=== PATIENT | male | born 1965 | race African-American/Black ===

== ENCOUNTER 2018-10-01 15:51 | Inpatient (IN) | payer OTHER ==
[~2018-10-01] VITALS: Ht 180.3 cm; Wt 131.5 kg
[2018-10-01] MEDS ORDERED: FURO-152 PO (16:00)
[2018-10-01] MEDS ORDERED: METHYLPREDNISOLONE SOD SUCC 125 MG/2 ML VIAL IV STA (16:07)
[2018-10-01] MEDS ORDERED: IPRATROPIUM/ALBUTEROL 0.5-3(2.5)MG/3ML NEB ONE (16:11)
[2018-10-01] MEDS ORDERED: NITROGLYCERIN OINT 1GM/INCH UDPKT TD ONE (16:15)
[2018-10-01] MEDS ORDERED: MAGNESIUM 2 G PREMIX 50 ML IV ONE (16:15)
[2018-10-01] MEDS ORDERED: IPRATROPIUM/ALBUTEROL 0.5-3(2.5)MG/3ML NEB HHN ONE (16:15)
[2018-10-01] MEDS ORDERED: FUROSEMIDE 40MG/4ML VIAL IV ONE (16:15)
[2018-10-01 16:47] LABS: BG BASE EXCESS 1.3 mmol/L (-2.0-2.0); BG CARBOXYHEMOGLOBIN 0.8 % (0.5-1.5); BG DEOXYHEMOGLOBIN 0.5 % (0.0-5.0); BG FRACTION INSPIRED OXYGEN 60; BG HCO3 ACT 26.1 mmol/L (22.0-26.0); BG METHEMOGLOBIN 0.3 % (0.0-1.5); BG OXYGEN SATURATION 99.5 % (92.0-98.5); BG OXYHEMOGLOBIN 98.4 % (94.0-97.0); BG PCO2 41.9 mmHg (35.0-45.0); BG PH 7.412 (7.350-7.450); BG PO2 390.1 mmHg (75.0-100.0); BG PRESSURE SUPPORT 10; BG SAMPLE SITE RIGHT BRACHIAL; BG TOTAL HEMOGLOBIN 12.7 g/dL (12.0-18.0); BG VENT MODE MASK - BIPAP; BG VENT RATE 14 set
[2018-10-01 16:48] LABS: BG BILEVEL POS AIRWAY PRESSURE ST=15/5
[2018-10-01 17:34] LABS: BASOPHILS % 0.8 % (0.0-2.0); EOSINOPHILS % 3.9 % (0.0-5.0); HEMATOCRIT. 40.6 % (42.0-52.0); HEMOGLOBIN. 13.4 g/dL (14.0-18.0); MEAN CORPUSCULAR HEMOGLOBIN 27.9 pg (28.0-32.0); MEAN CORPUSCULAR VOLUME 84.9 fL (80.0-94.0); MEAN PLATELET VOLUME 9.7 fl (7.4-10.4); MONOCYTES % 10.5 % (2.0-8.0); NEUTROPHILS % 62.8 % (40.0-76.0); PLATELET 186 x1000/uL (130-400); RED BLOOD CELL COUNT 4.79 mill/uL (4.7-6.1); RED CELL DISTRIBUTION WIDTH 13.7 % (11.6-14.6)
[2018-10-01 17:39] LABS: CHLORIDE 103 mEq/L (98-107)
[2018-10-01 17:46] LABS: CLARITY URINE CLEAR (CLEAR); COLOR URINE YELLOW (YELLOW); KETONES URINE NEGATIVE (NEGATIVE); LEUKOCYTE ESTERASE URINE NEGATIVE (NEGATIVE); NITRITE URINE NEGATIVE (NEGATIVE); OCCULT BLOOD URINE NEGATIVE (NEGATIVE); PH URINE 6.5 (4.5-8.0); PROTEIN URINE NEGATIVE (NEGATIVE); UROBILINOGEN URINE 0.2 E.U./dL (0.2-1.0)
[2018-10-01 23:00] VITALS: BP 169/105
[2018-10-01 23:11] VITALS: BP 169/105
[2018-10-02] VITALS (13 sets, daily range): BP systolic 108–172; BP diastolic 55–109
[2018-10-02] MEDS ORDERED: ACETAMINOPHEN 325MG TABLET PO PRN (01:00)
[2018-10-02] MEDS ORDERED: ONDANSETRON HCL 4MG/2ML INJ IV PRN (01:00)
[2018-10-02] MEDS: CLONIDINE 0.1MG TABLET PO PRN ×2 (02:59→13:08)
[2018-10-02] MEDS: METHYLPREDNISOLONE SOD SUCC 40 MG/ML VIAL IV SCH ×3 (03:00→18:00)
[2018-10-02] MEDS: ENOXAPARIN 30MG/0.3ML SYR SUBCUT SCH ×2 (03:01→21:34)
[2018-10-02] MEDS: IPRATROPIUM/ALBUTEROL 0.5-3(2.5)MG/3ML NEB HHN SCH ×5 (04:29→19:46)
[2018-10-02 05:42] LABS: HEMATOCRIT. 37.9 % (42.0-52.0); HEMOGLOBIN. 12.3 g/dL (14.0-18.0); MEAN CORPUSCULAR HEMOGLOBIN 27.9 pg (28.0-32.0); MEAN CORPUSCULAR VOLUME 86.1 fL (80.0-94.0); MEAN PLATELET VOLUME 10.5 fl (7.4-10.4); PLATELET 193 x1000/uL (130-400); RED CELL DISTRIBUTION WIDTH 14.5 % (11.6-14.6)
[2018-10-02 05:46] LABS: CHLORIDE 98 mEq/L (98-107)
[2018-10-02] MEDS ORDERED: FLUO40CA8 MT (05:47)
[2018-10-02] MEDS ORDERED: POTASSIUM PO (05:47)
[2018-10-02] MEDS ORDERED: VITAMIN K PO (05:47)
[2018-10-02] MEDS ORDERED: Lisinopril PO (05:47)
[2018-10-02] MEDS ORDERED: PROZAC PO (05:47)
[2018-10-02] MEDS ORDERED: FUROSEMIDE PO (05:47)
[2018-10-02] MEDS ORDERED: ATOR40TA70 MT (05:47)
[2018-10-02] MEDS ORDERED: HYDR-4135 MT (05:47)
[2018-10-02] MEDS ORDERED: Carvedilol PO (05:47)
[2018-10-02] MEDS ORDERED: ATROV INH (05:47)
[2018-10-02] MEDS ORDERED: ASPI-1159 MT (05:47)
[2018-10-02] MEDS: FUROSEMIDE 40MG/4ML VIAL IVP SCH ×2 (08:42→16:53)
[2018-10-02 08:44] LABS: BG BASE EXCESS -0.2 mmol/L (-2.0-2.0); BG BILEVEL POS AIRWAY PRESSURE ST=15/5; BG CARBOXYHEMOGLOBIN 0.5 % (0.5-1.5); BG DEOXYHEMOGLOBIN 4.4 % (0.0-5.0); BG FRACTION INSPIRED OXYGEN 50; BG HCO3 ACT 25.4 mmol/L (22.0-26.0); BG METHEMOGLOBIN 0.3 % (0.0-1.5); BG OXYGEN SATURATION 95.6 % (92.0-98.5); BG OXYHEMOGLOBIN 94.8 % (94.0-97.0); BG PH 7.369 (7.350-7.450); BG PO2 83.5 mmHg (75.0-100.0); BG PRESSURE SUPPORT 10; BG SAMPLE SITE RIGHT BRACHIAL; BG TOTAL HEMOGLOBIN 12.7 g/dL (12.0-18.0); BG VENT MODE MASK - BIPAP; BG VENT RATE 14 set
[2018-10-02] MEDS ORDERED: METF-414 PO (10:06)
[2018-10-02] MEDS ORDERED: DEXTROSE 50% WATER 50ML SYRINGE IV PRN (10:30)
[2018-10-02] MEDS ORDERED: BLOOD SUGAR DIAGNOSTIC STRIP TEST SCH (11:50)
[2018-10-02] MEDS: INSULIN LISPRO 100 UNITS/ML SUBCUT SCH ×4 (11:59→21:35)
[2018-10-02] MEDS ORDERED: INSULIN LISPRO 100 UNITS/ML SUBCUT SCH (12:20)
[2018-10-02] MEDS ORDERED: HYDRALAZINE HCL 25MG TABLET PO SCH (13:00)
[2018-10-02] MEDS: FLUOXETINE HCL 20MG CAPSULE PO SCH (13:08)
[2018-10-02 13:12] LABS: CHLORIDE 97 mEq/L (98-107)
[2018-10-02 13:48] LABS: PLATELET ESTIMATE NORMAL
[2018-10-02] MEDS: LOSARTAN POTASSIUM 25 MG TABLET PO SCH (14:39)
[2018-10-02] MEDS: GUAIFENESIN 600MG ER TABLET PO SCH (14:39)
[2018-10-02 15:22] LABS: *AMPHETAMINES SCREEN URINE NEGATIVE (NEGATIVE); *BARBITURATES SCREEN URINE NEGATIVE (NEGATIVE); *BENZODIAZEPINES SCREEN URINE NEGATIVE (NEGATIVE)
[2018-10-02 15:23] LABS: *COCAINE SCREEN URINE NEGATIVE (NEGATIVE); CANNABINOID URINE SCREEN PRESUMTIVE POSITIVE (NEGATIVE); METHADONE URINE SCREEN NEGATIVE (NEGATIVE); OPIATES URINE SCREEN NEGATIVE (NEGATIVE); PHENCYCLIDINE URINE SCREEN NEGATIVE (NEGATIVE)
[2018-10-02] MEDS: BLOOD SUGAR DIAGNOSTIC STRIP TEST SCH ×2 (16:10→20:49)
[2018-10-02] MEDS: INSULIN GLARGINE UD 100 UNITS/ML SYR SUBCUT SCH (16:17)
[2018-10-02] MEDS ORDERED: MEDICATION NOT ON FORMULARY EA (Hydralazine Hcl 1 TAB) MT SCH (17:00)
[2018-10-02] MEDS: GUAIFENESIN/DM 600MG/30MG ER TAB 12HR PO SCH (21:33)
[2018-10-02] MEDS: ATORVASTATIN CALCIUM 20MG TABLET PO SCH (21:33)
[2018-10-02] MEDS: HYDRALAZINE HCL 50MG TABLET PO SCH (21:34)
[2018-10-03] VITALS (13 sets, daily range): BP systolic 143–172; BP diastolic 68–100
[2018-10-03] MEDS: IPRATROPIUM/ALBUTEROL 0.5-3(2.5)MG/3ML NEB HHN SCH ×6 (00:23→21:19)
[2018-10-03] MEDS: LOSARTAN POTASSIUM 25 MG TABLET PO SCH ×3 (00:33→21:25)
[2018-10-03] MEDS: GUAIFENESIN 600MG ER TABLET PO SCH ×3 (00:33→21:26)
[2018-10-03] MEDS: INSULIN LISPRO 100 UNITS/ML SUBCUT SCH ×10 (00:35→23:33)
[2018-10-03] MEDS: BLOOD SUGAR DIAGNOSTIC STRIP TEST SCH ×7 (00:45→23:23)
[2018-10-03] MEDS: METHYLPREDNISOLONE SOD SUCC 40 MG/ML VIAL IV SCH ×3 (01:27→17:38)
[2018-10-03 07:46] LABS: HEMATOCRIT. 36.3 % (42.0-52.0); HEMOGLOBIN. 11.8 g/dL (14.0-18.0); MEAN CORPUSCULAR HEMOGLOBIN 27.6 pg (28.0-32.0); MEAN CORPUSCULAR VOLUME 85.1 fL (80.0-94.0); MEAN PLATELET VOLUME 10.2 fl (7.4-10.4); PLATELET 197 x1000/uL (130-400); RED BLOOD CELL COUNT 4.27 mill/uL (4.7-6.1)
[2018-10-03 07:57] LABS: CHLORIDE 100 mEq/L (98-107)
[2018-10-03] MEDS: FLUOXETINE HCL 20MG CAPSULE PO SCH (08:07)
[2018-10-03] MEDS: GUAIFENESIN/DM 600MG/30MG ER TAB 12HR PO SCH ×2 (08:07→21:26)
[2018-10-03 08:08] LABS: LDL CHOLESTEROL 110 mg/dL (5-100)
[2018-10-03 08:09] LABS: CREATINE KINASE 214 IU/L (39-308); CREATINE KINASE MB FRACTION 2.2 ng/mL (0.5-3.6); HDL CHOLESTEROL 44 mg/dL (40-59)
[2018-10-03] MEDS: FUROSEMIDE 40MG/4ML VIAL IVP SCH ×2 (08:09→16:23)
[2018-10-03] MEDS: HYDRALAZINE HCL 50MG TABLET PO SCH ×2 (08:09→21:25)
[2018-10-03] MEDS: ENOXAPARIN 30MG/0.3ML SYR SUBCUT SCH (08:09)
[2018-10-03] MEDS ORDERED: MEDICATION NOT ON FORMULARY EA (Fluoxetine Hcl (Prozac) 1 CAP) MT SCH (09:00)
[2018-10-03] MEDS: INSULIN GLARGINE UD 100 UNITS/ML SYR SUBCUT SCH (09:37)
[2018-10-03 10:58] LABS: PLATELET ESTIMATE NORMAL
[2018-10-03] MEDS: CLONIDINE 0.1MG TABLET PO PRN (12:09)
[2018-10-03] MEDS ORDERED: GUAIFENESIN/CODEINE 100-10MG/5ML UDC PO PRN (16:00)
[2018-10-03] MEDS: GUAIFENESIN/CODEINE 200-20MG/10ML UDC PO PRN ×2 (16:24→23:40)
[2018-10-03] MEDS: HYDROCODONE/ACETAMINOPHEN 5/325MG TABLET PO PRN (20:39)
[2018-10-03] MEDS: ATORVASTATIN CALCIUM 20MG TABLET PO SCH (21:25)
[2018-10-03] MEDS: ENOXAPARIN 40MG/0.4ML SYR SUBCUT SCH (21:26)
[2018-10-04] VITALS (12 sets, daily range): BP systolic 147–173; BP diastolic 82–108
[2018-10-04] MEDS: FUROSEMIDE 40MG/4ML VIAL IVP SCH ×3 (00:33→17:17)
[2018-10-04] MEDS: IPRATROPIUM/ALBUTEROL 0.5-3(2.5)MG/3ML NEB HHN SCH ×6 (00:43→20:10)
[2018-10-04] MEDS: BLOOD SUGAR DIAGNOSTIC STRIP TEST SCH ×6 (03:48→23:55)
[2018-10-04] MEDS: INSULIN LISPRO 100 UNITS/ML SUBCUT SCH ×8 (04:05→20:22)
[2018-10-04] MEDS: GUAIFENESIN/CODEINE 200-20MG/10ML UDC PO PRN ×3 (06:27→22:58)
[2018-10-04 07:47] LABS: HEMOGLOBIN. 11.7 g/dL (14.0-18.0); MEAN CORPUSCULAR HEMOGLOBIN 27.7 pg (28.0-32.0); MEAN CORPUSCULAR VOLUME 85.5 fL (80.0-94.0); MEAN PLATELET VOLUME 9.9 fl (7.4-10.4); PLATELET 195 x1000/uL (130-400); RED BLOOD CELL COUNT 4.21 mill/uL (4.7-6.1); RED CELL DISTRIBUTION WIDTH 14.2 % (11.6-14.6)
[2018-10-04 08:11] LABS: CHLORIDE 100 mEq/L (98-107)
[2018-10-04] MEDS: FLUOXETINE HCL 20MG CAPSULE PO SCH (08:14)
[2018-10-04] MEDS: LOSARTAN POTASSIUM 25 MG TABLET PO SCH ×2 (08:14→20:38)
[2018-10-04] MEDS: ENOXAPARIN 40MG/0.4ML SYR SUBCUT SCH ×2 (08:14→20:38)
[2018-10-04] MEDS: HYDRALAZINE HCL 50MG TABLET PO SCH ×2 (08:15→20:38)
[2018-10-04] MEDS: GUAIFENESIN 600MG ER TABLET PO SCH ×2 (08:15→20:38)
[2018-10-04] MEDS: GUAIFENESIN/DM 600MG/30MG ER TAB 12HR PO SCH ×2 (08:15→20:38)
[2018-10-04] MEDS: METHYLPREDNISOLONE SOD SUCC 40 MG/ML VIAL IV SCH ×2 (08:32→20:37)
[2018-10-04] MEDS: INSULIN GLARGINE UD 100 UNITS/ML SYR SUBCUT SCH (09:46)
[2018-10-04] MEDS: LEVOFLOXACIN 500MG TABLET PO SCH (15:45)
[2018-10-04 15:51] LABS: PLATELET ESTIMATE NORMAL
[2018-10-04] MEDS: HYDROCODONE/ACETAMINOPHEN 5/325MG TABLET PO PRN (17:38)
[2018-10-04] MEDS: CLONIDINE 0.1MG TABLET PO PRN (17:43)
[2018-10-04] MEDS: ATORVASTATIN CALCIUM 20MG TABLET PO SCH (20:38)
[2018-10-05] VITALS (10 sets, daily range): BP systolic 150–165; BP diastolic 81–103
[2018-10-05] MEDS: INSULIN LISPRO 100 UNITS/ML SUBCUT SCH ×6 (00:16→12:06)
[2018-10-05] MEDS: IPRATROPIUM/ALBUTEROL 0.5-3(2.5)MG/3ML NEB HHN SCH ×5 (00:26→15:55)
[2018-10-05] MEDS: FUROSEMIDE 40MG/4ML VIAL IVP SCH ×2 (00:43→08:32)
[2018-10-05] MEDS: BLOOD SUGAR DIAGNOSTIC STRIP TEST SCH ×3 (04:40→12:02)
[2018-10-05] MEDS: GUAIFENESIN/CODEINE 200-20MG/10ML UDC PO PRN (06:55)
[2018-10-05] MEDS ORDERED: GUAIFENESIN/CODEINE 100-10MG/5ML UDC PO PRN ×2 (08:15)
[2018-10-05] MEDS: GUAIFENESIN 600MG ER TABLET PO SCH (08:32)
[2018-10-05] MEDS: METHYLPREDNISOLONE SOD SUCC 40 MG/ML VIAL IV SCH (08:32)
[2018-10-05] MEDS: LOSARTAN POTASSIUM 25 MG TABLET PO SCH (08:32)
[2018-10-05] MEDS: FLUOXETINE HCL 20MG CAPSULE PO SCH (08:32)
[2018-10-05] MEDS: HYDRALAZINE HCL 50MG TABLET PO SCH (08:32)
[2018-10-05] MEDS: GUAIFENESIN/DM 600MG/30MG ER TAB 12HR PO SCH (08:32)
[2018-10-05] MEDS: ENOXAPARIN 40MG/0.4ML SYR SUBCUT SCH (08:33)
[2018-10-05] MEDS: LEVOFLOXACIN 500MG TABLET PO SCH (10:04)
[2018-10-05] MEDS: INSULIN GLARGINE UD 100 UNITS/ML SYR SUBCUT SCH (10:05)
== END 2018-10-05 16:05 | disposition home or self-care (01) | DRG 133 ==
LOC: ER 15:51 → 3WST 18:15 → ENRESERV 19:44
PROVIDERS: ADMIT Internal Medicine; ATTEND Internal Medicine
PROC: 5A09457 Assistance with Respiratory Ventilation, 24-96 Consecutive Hours, Continuous Positive Airway Pressure (ICD-10-PCS; 2018-10-01)
PROC: 5A09357 Assistance with Respiratory Ventilation, Less than 24 Consecutive Hours, Continuous Positive Airway Pressure (ICD-10-PCS; principal; 2018-10-03)
PROC: 5A09357 Assistance with Respiratory Ventilation, Less than 24 Consecutive Hours, Continuous Positive Airway Pressure (ICD-10-PCS; 2018-10-05)
DX: J96.01 Acute respiratory failure with hypoxia (principal); I50.33 Acute on chronic diastolic (congestive) heart failure; R65.10 Systemic inflammatory response syndrome (SIRS) of non-infectious origin without acute organ dysfunction; J44.1 Chronic obstructive pulmonary disease with (acute) exacerbation; E11.65 Type 2 diabetes mellitus with hyperglycemia; J45.901 Unspecified asthma with (acute) exacerbation; I11.0 Hypertensive heart disease with heart failure; Z68.41 Body mass index [BMI] 40.0-44.9, adult; E66.9 Obesity, unspecified; E78.00 Pure hypercholesterolemia, unspecified; F12.90 Cannabis use, unspecified, uncomplicated; R07.89 Other chest pain; F32.9 Major depressive disorder, single episode, unspecified; F41.9 Anxiety disorder, unspecified; T38.0X5A Adverse effect of glucocorticoids and synthetic analogues, initial encounter; Z79.4 Long term (current) use of insulin; Z87.891 Personal history of nicotine dependence; Y92.89 Other specified places as the place of occurrence of the external cause
CPT/HCPCS: 36415; 36600; 71045; 80048; 80061; 80305; 82375; 82550; 82553; 82805; 82962; 83036; 83605; 83735; 83880; 84443; 84484; 85379; 93005; 93306; 93970; 94640; 96365; 96366; 96375; 99291; J1650; J1815; J1940; J2920; J2930; J3475; J7620

== ENCOUNTER 2021-09-14 06:19 | Inpatient (IN) | payer OTHER ==
[~2021-09-14] VITALS: Ht 180.3 cm; Wt 147.0 kg
[~2021-09-14 06:19] MED LIST: ASPI-1497 MT; ATOR40TA70 MT; ATROV INH; Carvedilol PO; FLUO40CA8 MT; FURO-152 PO; FUROSEMIDE PO; HYDR-4135 MT; Lisinopril PO; METF-414 PO; POTASSIUM PO; PROZAC PO; VITAMIN K PO
[2021-09-14] MEDS ORDERED: FUROSEMIDE 40MG/4ML VIAL IV ONE (06:45)
[2021-09-14 07:14] LABS: CHLORIDE 106 mEq/L (98-107)
[2021-09-14 07:16] LABS: BASOPHILS % 0.6 % (0.0-2.0); EOSINOPHILS % 2.2 % (0.0-5.0); HEMATOCRIT. 39.4 % (42.0-52.0); HEMOGLOBIN. 12.7 g/dL (14.0-18.0); MEAN CORPUSCULAR HEMOGLOBIN 27.4 pg (28.0-32.0); MEAN CORPUSCULAR VOLUME 85.1 fL (80.0-94.0); MEAN PLATELET VOLUME 10.4 fl (7.4-10.4); MONOCYTES % 12.6 % (2.0-8.0); NEUTROPHILS % 55.6 % (40.0-76.0); PLATELET 195 x1000/uL (130-400); RED BLOOD CELL COUNT 4.63 mill/uL (4.7-6.1); RED CELL DISTRIBUTION WIDTH 14.1 % (11.6-14.6)
[2021-09-14] MEDS ORDERED: IPRATROPIUM BROMIDE (0.02%) 0.5MG/2.5ML NEB HHN STA (07:40)
[2021-09-14] MEDS ORDERED: MAGNESIUM 2 G PREMIX 50 ML IV STA (07:40)
[2021-09-14] MEDS ORDERED: METHYLPREDNISOLONE SOD SUCC 125 MG/2 ML VIAL IV STA (07:40)
[2021-09-14] MEDS ORDERED: FUROSEMIDE 40MG/4ML VIAL IVP ONE (10:15)
[2021-09-14] MEDS ORDERED: IPRATROPIUM/ALBUTEROL 0.5-3(2.5)MG/3ML NEB HHN PRN ×2 (12:15→14:00)
[2021-09-14] MEDS ORDERED: LORAZEPAM 0.5MG TABLET PO PRN (14:00)
[2021-09-14] MEDS ORDERED: CLONIDINE 0.1MG TABLET PO PRN (14:00)
[2021-09-14] MEDS ORDERED: ACETAMINOPHEN 325MG TABLET PO PRN ×2 (14:00)
[2021-09-14] MEDS ORDERED: HYDROCODONE/ACETAMINOPHEN 5/325MG TABLET PO PRN (14:00)
[2021-09-14] MEDS ORDERED: DOCUSATE SODIUM 100MG CAPSULE PO PRN (14:00)
[2021-09-14] MEDS ORDERED: ONDANSETRON HCL 4MG/2ML INJ IV PRN (14:00)
[2021-09-14] MEDS ORDERED: NALOXONE HCL 0.4MG/ML VIAL IV PRN (14:15)
[2021-09-14] MEDS: ASPIRIN 81MG EC TABLET PO SCH (15:31)
[2021-09-14] MEDS: FLUOXETINE HCL 20MG CAPSULE PO SCH (15:31)
[2021-09-14 16:00] VITALS: BP 175/104
[2021-09-14 17:00] VITALS: BP 175/104
[2021-09-14] MEDS ORDERED: HYDRALAZINE HCL 50MG TABLET PO SCH (17:00)
[2021-09-14 18:00] VITALS: BP 185/109
[2021-09-14] MEDS: HYDRALAZINE HCL 50MG TABLET PO SCH (18:00)
[2021-09-14] MEDS: LISINOPRIL 10MG TABLET PO SCH (18:01)
[2021-09-14] MEDS: AMLODIPINE 2.5MG TABLET PO SCH (18:01)
[2021-09-14] MEDS ORDERED: DEXTROSE 50% WATER 50ML SYRINGE IV PRN ×2 (19:30→19:45)
[2021-09-14 19:44] LABS: CREATINE KINASE 159 IU/L (39-308)
[2021-09-14 19:45] LABS: CREATINE KINASE MB FRACTION 2.7 ng/mL (0.5-3.6)
[2021-09-14 20:00] VITALS: BP 152/96
[2021-09-14 20:55] LABS: *AMPHETAMINES SCREEN URINE NEGATIVE (NEGATIVE); *BARBITURATES SCREEN URINE NEGATIVE (NEGATIVE); *BENZODIAZEPINES SCREEN URINE NEGATIVE (NEGATIVE); *COCAINE SCREEN URINE NEGATIVE (NEGATIVE); METHADONE URINE SCREEN NEGATIVE (NEGATIVE)
[2021-09-14 20:56] LABS: CANNABINOID URINE SCREEN NEGATIVE (NEGATIVE); OPIATES URINE SCREEN NEGATIVE (NEGATIVE); PHENCYCLIDINE URINE SCREEN NEGATIVE (NEGATIVE)
[2021-09-14] MEDS: IPRATROPIUM/ALBUTEROL 0.5-3(2.5)MG/3ML NEB HHN SCH (20:59)
[2021-09-14] MEDS: INSULIN LISPRO 100 UNITS/ML SUBCUT SCH (21:00)
[2021-09-14] MEDS ORDERED: BLOOD SUGAR DIAGNOSTIC STRIP TEST SCH (21:00)
[2021-09-14] MEDS: BLOOD SUGAR DIAGNOSTIC STRIP TEST SCH (21:00)
[2021-09-14] MEDS ORDERED: INSULIN LISPRO 100 UNITS/ML SUBCUT SCH (21:00)
[2021-09-14 22:00] VITALS: BP 152/97
[2021-09-15] VITALS (11 sets, daily range): BP systolic 112–156; BP diastolic 52–107
[2021-09-15] MEDS: IPRATROPIUM/ALBUTEROL 0.5-3(2.5)MG/3ML NEB HHN SCH ×4 (01:09→20:49)
[2021-09-15 06:32] LABS: CHLORIDE 103 mEq/L (98-107); HEMOGLOBIN. 12.9 g/dL (14.0-18.0); MEAN CORPUSCULAR HEMOGLOBIN 27.2 pg (28.0-32.0); MEAN CORPUSCULAR VOLUME 86.2 fL (80.0-94.0); MEAN PLATELET VOLUME 10.6 fl (7.4-10.4); PLATELET 203 x1000/uL (130-400); RED BLOOD CELL COUNT 4.75 mill/uL (4.7-6.1); RED CELL DISTRIBUTION WIDTH 14.4 % (11.6-14.6)
[2021-09-15 06:45] LABS: CREATINE KINASE 134 IU/L (39-308)
[2021-09-15 06:49] LABS: CREATINE KINASE MB FRACTION 2.5 ng/mL (0.5-3.6)
[2021-09-15] MEDS: BLOOD SUGAR DIAGNOSTIC STRIP TEST SCH ×4 (07:52→21:00)
[2021-09-15] MEDS: INSULIN LISPRO 100 UNITS/ML SUBCUT SCH ×4 (08:00→20:39)
[2021-09-15] MEDS: FLUOXETINE HCL 20MG CAPSULE PO SCH (08:37)
[2021-09-15] MEDS: LISINOPRIL 10MG TABLET PO SCH (08:39)
[2021-09-15] MEDS: AMLODIPINE 2.5MG TABLET PO SCH ×2 (08:39→17:00)
[2021-09-15] MEDS: HYDRALAZINE HCL 50MG TABLET PO SCH ×3 (08:40→17:00)
[2021-09-15] MEDS: ASPIRIN 81MG EC TABLET PO SCH (08:40)
[2021-09-15] MEDS: FUROSEMIDE 40MG/4ML VIAL IVP SCH ×2 (08:41→17:13)
[2021-09-15] MEDS: METHYLPREDNISOLONE SOD SUCC 40 MG/ML VIAL IV SCH (08:41)
[2021-09-15] MEDS: POTASSIUM CHLORIDE 20MEQ TABLET SR PO SCH (08:42)
[2021-09-15] MEDS ORDERED: MAGNESIUM 2 G PREMIX 50 ML IV SCH (10:00)
[2021-09-15 16:23] LABS: PLATELET ESTIMATE NORMAL
[2021-09-15] MEDS: INSULIN GLARGINE UD 100 UNITS/ML SYR SUBCUT SCH (22:37)
[2021-09-16] VITALS (8 sets, daily range): BP systolic 140–152; BP diastolic 75–101
[2021-09-16] MEDS: IPRATROPIUM/ALBUTEROL 0.5-3(2.5)MG/3ML NEB HHN SCH ×4 (01:26→21:53)
[2021-09-16 05:46] LABS: CHLORIDE 101 mEq/L (98-107)
[2021-09-16 06:01] LABS: PHOSPHORUS 4.2 mg/dL (2.5-4.9)
[2021-09-16 06:27] LABS: HEMATOCRIT. 41.8 % (42.0-52.0); HEMOGLOBIN. 13.1 g/dL (14.0-18.0); MEAN CORPUSCULAR HEMOGLOBIN 27.4 pg (28.0-32.0); MEAN CORPUSCULAR VOLUME 87.4 fL (80.0-94.0); MEAN PLATELET VOLUME 10.9 fl (7.4-10.4); PLATELET 206 x1000/uL (130-400); RED BLOOD CELL COUNT 4.78 mill/uL (4.7-6.1); RED CELL DISTRIBUTION WIDTH 14.6 % (11.6-14.6)
[2021-09-16] MEDS: BLOOD SUGAR DIAGNOSTIC STRIP TEST SCH ×4 (07:30→21:00)
[2021-09-16] MEDS: ASPIRIN 81MG EC TABLET PO SCH (08:19)
[2021-09-16] MEDS: FLUOXETINE HCL 20MG CAPSULE PO SCH (08:19)
[2021-09-16] MEDS: LISINOPRIL 10MG TABLET PO SCH (08:21)
[2021-09-16] MEDS: AMLODIPINE 2.5MG TABLET PO SCH (08:21)
[2021-09-16] MEDS: HYDRALAZINE HCL 50MG TABLET PO SCH ×3 (08:21→17:00)
[2021-09-16] MEDS: FUROSEMIDE 40MG/4ML VIAL IVP SCH (08:21)
[2021-09-16] MEDS: POTASSIUM CHLORIDE 20MEQ TABLET SR PO SCH (08:21)
[2021-09-16] MEDS: METHYLPREDNISOLONE SOD SUCC 40 MG/ML VIAL IV SCH (08:22)
[2021-09-16] MEDS: INSULIN LISPRO 100 UNITS/ML SUBCUT SCH ×4 (08:23→21:48)
[2021-09-16 11:02] LABS: PLATELET ESTIMATE NORMAL
[2021-09-16] MEDS: AMLODIPINE 5MG TABLET PO SCH (21:47)
[2021-09-16] MEDS: INSULIN GLARGINE UD 100 UNITS/ML SYR SUBCUT SCH (21:49)
[2021-09-17] VITALS: BP 146/69
[2021-09-17] MEDS: IPRATROPIUM/ALBUTEROL 0.5-3(2.5)MG/3ML NEB HHN SCH ×4 (02:03→21:22)
[2021-09-17 04:00] VITALS: BP 138/100
[2021-09-17 06:40] LABS: BASOPHILS % 0.1 % (0.0-2.0); CHLORIDE 101 mEq/L (98-107); HEMOGLOBIN. 12.8 g/dL (14.0-18.0); LYMPHOCYTES % 8.8 % (20.0-50.0); MEAN CORPUSCULAR HEMOGLOBIN 27.9 pg (28.0-32.0); MEAN CORPUSCULAR VOLUME 86.9 fL (80.0-94.0); MEAN PLATELET VOLUME 10.8 fl (7.4-10.4); MONOCYTES % 9.9 % (2.0-8.0); NEUTROPHILS % 81.2 % (40.0-76.0); PLATELET 193 x1000/uL (130-400); RED CELL DISTRIBUTION WIDTH 14.6 % (11.6-14.6)
[2021-09-17] MEDS: BLOOD SUGAR DIAGNOSTIC STRIP TEST SCH ×4 (07:12→21:25)
[2021-09-17] MEDS: INSULIN LISPRO 100 UNITS/ML SUBCUT SCH ×4 (07:41→21:25)
[2021-09-17 08:00] VITALS: BP 128/89
[2021-09-17] MEDS: ASPIRIN 81MG EC TABLET PO SCH (08:11)
[2021-09-17] MEDS: AMLODIPINE 5MG TABLET PO SCH ×2 (08:11→21:25)
[2021-09-17] MEDS: POTASSIUM CHLORIDE 20MEQ TABLET SR PO SCH (08:11)
[2021-09-17] MEDS: LISINOPRIL 10MG TABLET PO SCH (08:11)
[2021-09-17] MEDS: HYDRALAZINE HCL 50MG TABLET PO SCH ×3 (08:11→19:10)
[2021-09-17] MEDS: FLUOXETINE HCL 20MG CAPSULE PO SCH (08:11)
[2021-09-17] MEDS: METHYLPREDNISOLONE SOD SUCC 40 MG/ML VIAL IV SCH (08:12)
[2021-09-17] MEDS ORDERED: FUROSEMIDE 40MG TABLET PO SCH (09:00)
[2021-09-17] MEDS ORDERED: MED4 MT (13:56)
[2021-09-17] MEDS ORDERED: LISI10TA26 PO (13:56)
[2021-09-17 16:00] VITALS: BP 166/95
[2021-09-17 20:00] VITALS: BP 152/89
[2021-09-17 20:53] VITALS: BP 159/82
[2021-09-17] MEDS ORDERED: INSULIN GLARGINE UD 100 UNITS/ML SYR SUBCUT SCH (22:00)
== END 2021-09-17 22:24 | disposition home or self-care (01) | DRG 194 ==
LOC: ER 06:19 → EDBEDREQ 07:24 → MICUSO 10:07 → EDBEDREQ 10:18 → EDBEDREQTM 10:18 → 5EST 12:50 → 8WST 09-17 12:00
PROVIDERS: ADMIT Internal Medicine; ATTEND Internal Medicine
PROC: 5A09357 Assistance with Respiratory Ventilation, Less than 24 Consecutive Hours, Continuous Positive Airway Pressure (ICD-10-PCS; principal; 2021-09-14)
DX: I11.0 Hypertensive heart disease with heart failure (principal); J96.01 Acute respiratory failure with hypoxia; R65.11 Systemic inflammatory response syndrome (SIRS) of non-infectious origin with acute organ dysfunction; J44.1 Chronic obstructive pulmonary disease with (acute) exacerbation; I47.2 Ventricular tachycardia; J45.901 Unspecified asthma with (acute) exacerbation; I50.43 Acute on chronic combined systolic (congestive) and diastolic (congestive) heart failure; I42.9 Cardiomyopathy, unspecified; D64.9 Anemia, unspecified; E66.9 Obesity, unspecified; E78.00 Pure hypercholesterolemia, unspecified; E78.5 Hyperlipidemia, unspecified; F32.A Depression, unspecified; F41.9 Anxiety disorder, unspecified; E11.65 Type 2 diabetes mellitus with hyperglycemia; R74.01 Elevation of levels of liver transaminase levels; Z79.82 Long term (current) use of aspirin; Z79.84 Long term (current) use of oral hypoglycemic drugs; Z68.42 Body mass index [BMI] 45.0-49.9, adult
CPT/HCPCS: 36415; 71045; 80048; 80053; 80076; 80305; 82550; 82553; 82962; 83036; 83735; 83880; 84100; 84443; 84484; 85025; 85379; 93005; 93306; 93970; 94640; 94660; 99291; J1815; J1940; J2920; J2930; J3475

== ENCOUNTER 2021-11-01 20:28 | Inpatient (IN) | payer OTHER ==
[~2021-11-01] VITALS: Ht 180.3 cm; Wt 129.3 kg
[~2021-11-01 20:28] MED LIST changes: -FUROSEMIDE PO; +LISI10TA26 PO; +MED4 MT; -PROZAC PO; -VITAMIN K PO
[2021-11-01 20:56] LABS: BG BASE EXCESS 2.1 mmol/L (-2.0-2.0); BG CARBOXYHEMOGLOBIN 0.2 % (0.5-1.5); BG DEOXYHEMOGLOBIN 3.3 % (0.0-5.0); BG FRACTION INSPIRED OXYGEN 50; BG HCO3 ACT 25.4 mmol/L (22.0-26.0); BG METHEMOGLOBIN 0.3 % (0.0-1.5); BG OXYGEN SATURATION 96.7 % (92.0-98.5); BG OXYHEMOGLOBIN 96.2 % (94.0-97.0); BG PCO2 35.1 mmHg (35.0-45.0); BG PH 7.477 (7.350-7.450); BG PO2 90.1 mmHg (75.0-100.0); BG SAMPLE SITE RIGHT RADIAL; BG TOTAL HEMOGLOBIN 12.9 g/dL (12.0-18.0); BG VENT MODE MASK - BIPAP
[2021-11-01 21:03] LABS: BASOPHILS % 0.2 % (0.0-2.0); EOSINOPHILS % 0.4 % (0.0-5.0); HEMATOCRIT. 37.2 % (42.0-52.0); HEMOGLOBIN. 12.2 g/dL (14.0-18.0); LYMPHOCYTES % 11.5 % (20.0-50.0); MEAN CORPUSCULAR HEMOGLOBIN 27.5 pg (28.0-32.0); MEAN CORPUSCULAR VOLUME 84.2 fL (80.0-94.0); MEAN PLATELET VOLUME 10.7 fl (7.4-10.4); MONOCYTES % 6.9 % (2.0-8.0); PLATELET 160 x1000/uL (130-400); RED BLOOD CELL COUNT 4.42 mill/uL (4.7-6.1); RED CELL DISTRIBUTION WIDTH 14.9 % (11.6-14.6)
[2021-11-01 21:04] LABS: CHLORIDE 105 mEq/L (98-107)
[2021-11-01] MEDS ORDERED: ACETAMINOPHEN 325MG TABLET PO ONE (21:30)
[2021-11-01] MEDS ORDERED: CEFTRIAXONE 1 G PREMIX 50 ML IV ONE (21:45)
[2021-11-01] MEDS ORDERED: AZITHROMYCIN 500MG/250ML 250 ML IV ONE (21:45)
[2021-11-01] MEDS ORDERED: DEXAMETHASONE 4MG/ML 1ML VIAL IV ONE (23:15)
[2021-11-02] MEDS ORDERED: DIPHENHYDRAMINE 50MG/ML VIAL IV PRN (08:30)
[2021-11-02] MEDS ORDERED: ENOXAPARIN 40MG/0.4ML SYR SUBCUT SCH (08:30)
[2021-11-02] MEDS ORDERED: ACETAMINOPHEN 325MG TABLET PO PRN (08:30)
[2021-11-02] MEDS ORDERED: ONDANSETRON HCL 4MG/2ML INJ IV PRN (08:30)
[2021-11-02] MEDS: DEXAMETHASONE 10 MG/ML VIAL IV SCH (09:59)
[2021-11-02] MEDS: ENOXAPARIN 30MG/0.3ML SYR SUBCUT SCH ×2 (10:00→21:45)
[2021-11-02] MEDS: CHLORDIAZEPOXIDE 25MG CAPSULE PO SCH ×2 (14:38→23:48)
[2021-11-02] MEDS: ERGOCALCIFEROL 50000UNITS CAPSULE PO SCH (15:45)
[2021-11-02] MEDS: LOSARTAN POTASSIUM 25 MG TABLET PO SCH ×2 (15:45→21:44)
[2021-11-02] MEDS ORDERED: POTASSIUM CHLORIDE 20MEQ TABLET SR PO NR (16:00)
[2021-11-02] MEDS ORDERED: FUROSEMIDE 40MG/4ML VIAL IVP NR (16:00)
[2021-11-02] MEDS: NITROGLYCERIN OINT 1GM/INCH UDPKT TD SCH (18:13)
[2021-11-02] MEDS: FAMOTIDINE 20MG/2ML VIAL IV SCH (21:44)
[2021-11-02] MEDS: ASCORBIC ACID 500 MG TABLET PO SCH (21:45)
[2021-11-02] MEDS ORDERED: CEFTRIAXONE 1 G PREMIX 50 ML IV SCH (22:00)
[2021-11-02] MEDS ORDERED: AZITHROMYCIN 500MG/250ML 250 ML IV SCH (23:00)
[2021-11-03] MEDS: NITROGLYCERIN OINT 1GM/INCH UDPKT TD SCH ×4 (00:48→22:54)
[2021-11-03] MEDS: CHLORDIAZEPOXIDE 25MG CAPSULE PO SCH ×3 (06:08→21:35)
[2021-11-03 06:37] LABS: HEMOGLOBIN. 11.9 g/dL (14.0-18.0); MEAN CORPUSCULAR HEMOGLOBIN 26.8 pg (28.0-32.0); MEAN CORPUSCULAR VOLUME 87.7 fL (80.0-94.0); MEAN PLATELET VOLUME 10.6 fl (7.4-10.4); PLATELET 193 x1000/uL (130-400); RED BLOOD CELL COUNT 4.45 mill/uL (4.7-6.1); RED CELL DISTRIBUTION WIDTH 15.2 % (11.6-14.6)
[2021-11-03 07:12] LABS: CHLORIDE 103 mEq/L (98-107)
[2021-11-03 08:36] LABS: BG BASE EXCESS -1.5 mmol/L (-2.0-2.0); BG CARBOXYHEMOGLOBIN 0.1 % (0.5-1.5); BG DEOXYHEMOGLOBIN 3.9 % (0.0-5.0); BG FRACTION INSPIRED OXYGEN 50; BG HCO3 ACT 24.3 mmol/L (22.0-26.0); BG METHEMOGLOBIN 0.2 % (0.0-1.5); BG OXYGEN SATURATION 96.1 % (92.0-98.5); BG OXYHEMOGLOBIN 95.8 % (94.0-97.0); BG PCO2 45.2 mmHg (35.0-45.0); BG PH 7.349 (7.350-7.450); BG PO2 88.1 mmHg (75.0-100.0); BG SAMPLE SITE RIGHT RADIAL; BG TOTAL HEMOGLOBIN 13.1 g/dL (12.0-18.0); BG VENT MODE MASK - BIPAP
[2021-11-03] MEDS ORDERED: DEXTROSE 50% WATER 50ML SYRINGE IV PRN (08:45)
[2021-11-03] MEDS: INSULIN GLARGINE UD 100 UNITS/ML SYR SUBCUT SCH ×2 (09:17→22:55)
[2021-11-03] MEDS: FAMOTIDINE 20MG/2ML VIAL IV SCH ×2 (09:18→21:00)
[2021-11-03] MEDS: ASCORBIC ACID 500 MG TABLET PO SCH ×2 (09:18→21:36)
[2021-11-03] MEDS: DEXAMETHASONE 10 MG/ML VIAL IV SCH (09:18)
[2021-11-03] MEDS: ENOXAPARIN 30MG/0.3ML SYR SUBCUT SCH ×2 (09:18→22:51)
[2021-11-03] MEDS: LOSARTAN POTASSIUM 25 MG TABLET PO SCH ×2 (09:18→21:35)
[2021-11-03] MEDS: CARVEDILOL 3.125 MG TABLET PO SCH (09:19)
[2021-11-03] MEDS: BLOOD SUGAR DIAGNOSTIC STRIP TEST SCH ×4 (11:41→21:00)
[2021-11-03] MEDS: INSULIN LISPRO 100 UNITS/ML SUBCUT SCH ×4 (12:32→21:39)
[2021-11-03 13:19] LABS: PLATELET ESTIMATE NORMAL
[2021-11-03] MEDS ORDERED: FUROSEMIDE 40MG/4ML VIAL IVP NR (15:30)
[2021-11-03 16:50] VITALS: BP 137/87
[2021-11-03 17:34] VITALS: BP 137/87
[2021-11-03] MEDS ORDERED: GUAIFENESIN-DM 200MG-20MG/10ML UDC PO PRN (19:00)
[2021-11-03 19:25] LABS: T4 FREE 1.19 ng/dL (0.76-1.46)
[2021-11-03 20:00] VITALS: BP 137/86
[2021-11-03] MEDS: AZITHROMYCIN 500MG in DEXTROSE 5% WATER 250ML IV SCH (21:00)
[2021-11-03] MEDS: CEFTRIAXONE 1,000 MG in DEXTROSE 5% WATER 50 ML IV SCH (21:35)
[2021-11-04] VITALS: BP 140/93
[2021-11-04 04:00] VITALS: BP 137/80
[2021-11-04] MEDS: NITROGLYCERIN OINT 1GM/INCH UDPKT TD SCH ×3 (05:35→21:53)
[2021-11-04] MEDS: CHLORDIAZEPOXIDE 25MG CAPSULE PO SCH ×3 (06:00→20:36)
[2021-11-04 06:24] LABS: HEMATOCRIT. 39.8 % (42.0-52.0); HEMOGLOBIN. 12.7 g/dL (14.0-18.0); MEAN CORPUSCULAR HEMOGLOBIN 27.7 pg (28.0-32.0); MEAN CORPUSCULAR VOLUME 86.4 fL (80.0-94.0); MEAN PLATELET VOLUME 10.1 fl (7.4-10.4); PLATELET 219 x1000/uL (130-400); RED BLOOD CELL COUNT 4.61 mill/uL (4.7-6.1); RED CELL DISTRIBUTION WIDTH 15.2 % (11.6-14.6)
[2021-11-04 07:15] LABS: CHLORIDE 104 mEq/L (98-107)
[2021-11-04] MEDS: BLOOD SUGAR DIAGNOSTIC STRIP TEST SCH ×4 (07:40→20:41)
[2021-11-04 08:00] VITALS: BP 140/85
[2021-11-04] MEDS ORDERED: FUROSEMIDE 40MG/4ML VIAL IVP SCH (09:00)
[2021-11-04] MEDS: FAMOTIDINE 20MG/2ML VIAL IV SCH (10:13)
[2021-11-04] MEDS: DEXAMETHASONE 10 MG/ML VIAL IV SCH (10:14)
[2021-11-04] MEDS: ASCORBIC ACID 500 MG TABLET PO SCH ×2 (10:19→20:36)
[2021-11-04] MEDS: ENOXAPARIN 30MG/0.3ML SYR SUBCUT SCH ×2 (10:19→20:38)
[2021-11-04] MEDS: LOSARTAN POTASSIUM 25 MG TABLET PO SCH ×2 (10:20→20:36)
[2021-11-04] MEDS: CARVEDILOL 3.125 MG TABLET PO SCH ×2 (10:20→20:37)
[2021-11-04] MEDS: INSULIN LISPRO 100 UNITS/ML SUBCUT SCH ×4 (10:22→20:41)
[2021-11-04] MEDS: INSULIN GLARGINE UD 100 UNITS/ML SYR SUBCUT SCH ×2 (10:23→21:55)
[2021-11-04 12:00] VITALS: BP 133/81
[2021-11-04 16:00] VITALS: BP 134/79
[2021-11-04] MEDS: FUROSEMIDE 40MG/4ML VIAL IVP SCH (17:59)
[2021-11-04 18:15] LABS: PLATELET ESTIMATE NORMAL
[2021-11-04 20:00] VITALS: BP 139/74
[2021-11-04] MEDS: FAMOTIDINE 20MG TABLET PO SCH (20:37)
[2021-11-04] MEDS: CEFTRIAXONE 1,000 MG in DEXTROSE 5% WATER 50 ML IV SCH (20:38)
[2021-11-04] MEDS: AZITHROMYCIN 500MG in DEXTROSE 5% WATER 250ML IV SCH (21:53)
[2021-11-05] VITALS: BP 148/87
[2021-11-05 04:00] VITALS: BP 153/87
[2021-11-05] MEDS: NITROGLYCERIN OINT 1GM/INCH UDPKT TD SCH ×3 (06:28→21:03)
[2021-11-05] MEDS: CHLORDIAZEPOXIDE 25MG CAPSULE PO SCH ×3 (06:28→21:02)
[2021-11-05] MEDS: INSULIN LISPRO 100 UNITS/ML SUBCUT SCH ×4 (06:29→21:07)
[2021-11-05 06:31] LABS: BASOPHILS % 0.3 % (0.0-2.0); HEMATOCRIT. 37.5 % (42.0-52.0); HEMOGLOBIN. 11.9 g/dL (14.0-18.0); LYMPHOCYTES % 7.5 % (20.0-50.0); MEAN CORPUSCULAR HEMOGLOBIN 27.8 pg (28.0-32.0); MEAN CORPUSCULAR VOLUME 87.3 fL (80.0-94.0); MEAN PLATELET VOLUME 10.3 fl (7.4-10.4); MONOCYTES % 7.8 % (2.0-8.0); NEUTROPHILS % 84.4 % (40.0-76.0); PLATELET 211 x1000/uL (130-400); RED BLOOD CELL COUNT 4.29 mill/uL (4.7-6.1); RED CELL DISTRIBUTION WIDTH 15.4 % (11.6-14.6)
[2021-11-05 06:33] LABS: CHLORIDE 100 mEq/L (98-107)
[2021-11-05] MEDS: BLOOD SUGAR DIAGNOSTIC STRIP TEST SCH ×4 (07:40→21:00)
[2021-11-05 08:00] VITALS: BP 155/94
[2021-11-05] MEDS: CARVEDILOL 3.125 MG TABLET PO SCH ×2 (08:44→21:00)
[2021-11-05] MEDS: ENOXAPARIN 30MG/0.3ML SYR SUBCUT SCH ×2 (08:44→21:00)
[2021-11-05] MEDS: FAMOTIDINE 20MG TABLET PO SCH ×2 (08:44→21:02)
[2021-11-05] MEDS: FUROSEMIDE 40MG/4ML VIAL IVP SCH ×2 (08:44→16:34)
[2021-11-05] MEDS: DEXAMETHASONE 10 MG/ML VIAL IV SCH (08:45)
[2021-11-05] MEDS: ASCORBIC ACID 500 MG TABLET PO SCH ×2 (08:45→21:02)
[2021-11-05] MEDS: LOSARTAN POTASSIUM 25 MG TABLET PO SCH (08:45)
[2021-11-05] MEDS: INSULIN GLARGINE UD 100 UNITS/ML SYR SUBCUT SCH (11:21)
[2021-11-05 12:00] VITALS: BP 157/91
[2021-11-05] MEDS ORDERED: INSULIN GLARGINE UD 100 UNITS/ML SYR SUBCUT NR (14:30)
[2021-11-05 16:00] VITALS: BP 146/54
[2021-11-05] MEDS ORDERED: INSULIN LISPRO 100 UNITS/ML SUBCUT NR (17:30)
[2021-11-05 20:00] VITALS: BP 133/91
[2021-11-05] MEDS: CEFTRIAXONE 1,000 MG in DEXTROSE 5% WATER 50 ML IV SCH (21:00)
[2021-11-05] MEDS: AZITHROMYCIN 500 MG TABLET PO SCH (21:02)
[2021-11-05] MEDS: LOSARTAN POTASSIUM 50 MG TABLET PO SCH (21:02)
[2021-11-05] MEDS ORDERED: INSULIN GLARGINE UD 100 UNITS/ML SYR SUBCUT SCH (22:00)
[2021-11-06] VITALS (7 sets, daily range): BP systolic 127–168; BP diastolic 91–106
[2021-11-06] MEDS: CLONIDINE 0.1MG TABLET PO PRN (05:41)
[2021-11-06] MEDS: NITROGLYCERIN OINT 1GM/INCH UDPKT TD SCH ×3 (05:41→20:21)
[2021-11-06] MEDS: INSULIN LISPRO 100 UNITS/ML SUBCUT SCH ×7 (05:42→20:20)
[2021-11-06] MEDS: CHLORDIAZEPOXIDE 25MG CAPSULE PO SCH ×3 (05:43→20:18)
[2021-11-06] MEDS: FUROSEMIDE 40MG/4ML VIAL IVP SCH ×2 (06:28→16:32)
[2021-11-06] MEDS: BLOOD SUGAR DIAGNOSTIC STRIP TEST SCH ×4 (07:40→20:21)
[2021-11-06] MEDS: FAMOTIDINE 20MG TABLET PO SCH ×2 (08:45→20:19)
[2021-11-06] MEDS: ENOXAPARIN 30MG/0.3ML SYR SUBCUT SCH ×2 (08:45→20:19)
[2021-11-06] MEDS: DEXAMETHASONE 10 MG/ML VIAL IV SCH (08:45)
[2021-11-06] MEDS: ASCORBIC ACID 500 MG TABLET PO SCH ×2 (08:45→20:18)
[2021-11-06] MEDS: CARVEDILOL 3.125 MG TABLET PO SCH (08:46)
[2021-11-06] MEDS: LOSARTAN POTASSIUM 50 MG TABLET PO SCH ×2 (08:46→20:19)
[2021-11-06] MEDS: INSULIN GLARGINE UD 100 UNITS/ML SYR SUBCUT SCH ×2 (10:12→21:29)
[2021-11-06 10:32] LABS: HEMATOCRIT. 39.6 % (42.0-52.0); MEAN CORPUSCULAR HEMOGLOBIN 27.9 pg (28.0-32.0); MEAN CORPUSCULAR VOLUME 84.8 fL (80.0-94.0); MEAN PLATELET VOLUME 9.6 fl (7.4-10.4); PLATELET 240 x1000/uL (130-400); RED BLOOD CELL COUNT 4.67 mill/uL (4.7-6.1); RED CELL DISTRIBUTION WIDTH 14.7 % (11.6-14.6)
[2021-11-06 10:45] LABS: CHLORIDE 100 mEq/L (98-107)
[2021-11-06 12:30] LABS: PLATELET ESTIMATE NORMAL
[2021-11-06] MEDS: CEFTRIAXONE 1,000 MG in DEXTROSE 5% WATER 50 ML IV SCH (20:18)
[2021-11-06] MEDS: CARVEDILOL 6.25 MG TABLET PO SCH (20:19)
[2021-11-06] MEDS: AZITHROMYCIN 500 MG TABLET PO SCH (20:19)
[2021-11-07] VITALS: BP 121/84
[2021-11-07 04:00] VITALS: BP 126/88
[2021-11-07] MEDS: CHLORDIAZEPOXIDE 25MG CAPSULE PO SCH ×2 (05:35→12:44)
[2021-11-07] MEDS: FUROSEMIDE 40MG/4ML VIAL IVP SCH ×2 (05:35→17:57)
[2021-11-07] MEDS: NITROGLYCERIN OINT 1GM/INCH UDPKT TD SCH ×3 (05:36→21:09)
[2021-11-07] MEDS: INSULIN LISPRO 100 UNITS/ML SUBCUT SCH ×7 (05:36→21:10)
[2021-11-07] MEDS: BLOOD SUGAR DIAGNOSTIC STRIP TEST SCH ×4 (05:37→21:10)
[2021-11-07 08:00] VITALS: BP 129/98
[2021-11-07] MEDS: ENOXAPARIN 30MG/0.3ML SYR SUBCUT SCH ×2 (09:00→21:09)
[2021-11-07] MEDS: DEXAMETHASONE 10 MG/ML VIAL IV SCH (09:04)
[2021-11-07] MEDS: ASCORBIC ACID 500 MG TABLET PO SCH ×2 (09:04→21:09)
[2021-11-07] MEDS: LOSARTAN POTASSIUM 50 MG TABLET PO SCH ×2 (09:05→21:09)
[2021-11-07] MEDS: CARVEDILOL 6.25 MG TABLET PO SCH ×2 (09:05→21:09)
[2021-11-07] MEDS: FAMOTIDINE 20MG TABLET PO SCH ×2 (09:06→21:08)
[2021-11-07 09:32] LABS: BASOPHILS % 0.2 % (0.0-2.0); EOSINOPHILS % 0.1 % (0.0-5.0); HEMATOCRIT. 42.5 % (42.0-52.0); HEMOGLOBIN. 13.5 g/dL (14.0-18.0); MEAN CORPUSCULAR HEMOGLOBIN 27.2 pg (28.0-32.0); MEAN CORPUSCULAR VOLUME 85.2 fL (80.0-94.0); MEAN PLATELET VOLUME 9.5 fl (7.4-10.4); MONOCYTES % 7.7 % (2.0-8.0); PLATELET 259 x1000/uL (130-400); RED BLOOD CELL COUNT 4.98 mill/uL (4.7-6.1); RED CELL DISTRIBUTION WIDTH 14.8 % (11.6-14.6)
[2021-11-07 10:03] LABS: CHLORIDE 98 mEq/L (98-107)
[2021-11-07] MEDS: INSULIN GLARGINE UD 100 UNITS/ML SYR SUBCUT SCH ×2 (10:20→21:14)
[2021-11-07 12:00] VITALS: BP 139/79
[2021-11-07 12:42] LABS: BG BASE EXCESS 6.8 mmol/L (-2.0-2.0); BG CARBOXYHEMOGLOBIN 0.2 % (0.5-1.5); BG DEOXYHEMOGLOBIN 10.8 % (0.0-5.0); BG FRACTION INSPIRED OXYGEN 21; BG HCO3 ACT 32.8 mmol/L (22.0-26.0); BG METHEMOGLOBIN 0.1 % (0.0-1.5); BG OXYGEN SATURATION 89.2 % (92.0-98.5); BG OXYHEMOGLOBIN 88.9 % (94.0-97.0); BG PCO2 52.2 mmHg (35.0-45.0); BG PH 7.416 (7.350-7.450); BG PO2 58.3 mmHg (75.0-100.0); BG SAMPLE SITE RIGHT RADIAL; BG TOTAL HEMOGLOBIN 13.9 g/dL (12.0-18.0); BG VENT MODE ROOM AIR
[2021-11-07 16:00] VITALS: BP 120/68
[2021-11-07 20:00] VITALS: BP 118/66
[2021-11-07] MEDS: AZITHROMYCIN 500 MG TABLET PO SCH (21:09)
[2021-11-07] MEDS: CEFTRIAXONE 1,000 MG in DEXTROSE 5% WATER 50 ML IV SCH (21:13)
[2021-11-08] VITALS: BP 120/86
[2021-11-08 04:00] VITALS: BP 122/81
[2021-11-08] MEDS: NITROGLYCERIN OINT 1GM/INCH UDPKT TD SCH ×3 (06:29→20:59)
[2021-11-08] MEDS: BLOOD SUGAR DIAGNOSTIC STRIP TEST SCH ×4 (06:29→20:59)
[2021-11-08] MEDS: INSULIN LISPRO 100 UNITS/ML SUBCUT SCH ×7 (06:29→21:00)
[2021-11-08] MEDS: FUROSEMIDE 40MG/4ML VIAL IVP SCH ×2 (06:29→18:28)
[2021-11-08 07:56] VITALS: BP 177/104
[2021-11-08] MEDS: LOSARTAN POTASSIUM 50 MG TABLET PO SCH ×2 (08:22→20:59)
[2021-11-08] MEDS: DEXAMETHASONE 10 MG/ML VIAL IV SCH (08:23)
[2021-11-08] MEDS: CARVEDILOL 6.25 MG TABLET PO SCH ×2 (08:23→20:59)
[2021-11-08] MEDS: ASCORBIC ACID 500 MG TABLET PO SCH ×2 (08:23→20:59)
[2021-11-08 08:24] LABS: BASOPHILS % 0.2 % (0.0-2.0); EOSINOPHILS % 2.3 % (0.0-5.0); HEMATOCRIT. 41.1 % (42.0-52.0); HEMOGLOBIN. 13.4 g/dL (14.0-18.0); MEAN CORPUSCULAR HEMOGLOBIN 27.7 pg (28.0-32.0); MEAN CORPUSCULAR VOLUME 85.2 fL (80.0-94.0); MEAN PLATELET VOLUME 9.9 fl (7.4-10.4); NEUTROPHILS % 83.5 % (40.0-76.0); PLATELET 269 x1000/uL (130-400); RED BLOOD CELL COUNT 4.83 mill/uL (4.7-6.1); RED CELL DISTRIBUTION WIDTH 14.9 % (11.6-14.6)
[2021-11-08] MEDS: FAMOTIDINE 20MG TABLET PO SCH ×2 (08:24→20:59)
[2021-11-08] MEDS: ENOXAPARIN 30MG/0.3ML SYR SUBCUT SCH ×2 (08:24→20:59)
[2021-11-08] MEDS: CLONIDINE 0.1MG TABLET PO PRN (08:24)
[2021-11-08 09:24] LABS: CHLORIDE 97 mEq/L (98-107)
[2021-11-08] MEDS: AMLODIPINE 5MG TABLET PO SCH (10:36)
[2021-11-08] MEDS: INSULIN GLARGINE UD 100 UNITS/ML SYR SUBCUT SCH ×2 (10:36→22:14)
[2021-11-08 12:00] VITALS: BP 138/77
[2021-11-08 16:00] VITALS: BP 125/70
[2021-11-08 20:00] VITALS: BP 137/89
[2021-11-08] MEDS ORDERED: INSULIN LISPRO 100 UNITS/ML SUBCUT NR (22:15)
[2021-11-09] VITALS: BP 106/35
[2021-11-09 04:00] VITALS: BP 96/52
[2021-11-09] MEDS: NITROGLYCERIN OINT 1GM/INCH UDPKT TD SCH ×3 (05:15→21:51)
[2021-11-09] MEDS: FUROSEMIDE 40MG/4ML VIAL IVP SCH (05:45)
[2021-11-09] MEDS: BLOOD SUGAR DIAGNOSTIC STRIP TEST SCH ×4 (05:57→21:49)
[2021-11-09] MEDS: INSULIN LISPRO 100 UNITS/ML SUBCUT SCH ×7 (05:57→21:51)
[2021-11-09 07:04] LABS: HEMATOCRIT. 41.7 % (42.0-52.0); HEMOGLOBIN. 13.6 g/dL (14.0-18.0); MEAN CORPUSCULAR HEMOGLOBIN 27.8 pg (28.0-32.0); MEAN CORPUSCULAR VOLUME 85.7 fL (80.0-94.0); MEAN PLATELET VOLUME 9.5 fl (7.4-10.4); PLATELET 247 x1000/uL (130-400); RED BLOOD CELL COUNT 4.87 mill/uL (4.7-6.1); RED CELL DISTRIBUTION WIDTH 14.8 % (11.6-14.6)
[2021-11-09 08:00] VITALS: BP 123/82
[2021-11-09] MEDS: ENOXAPARIN 30MG/0.3ML SYR SUBCUT SCH ×2 (09:23→21:49)
[2021-11-09] MEDS: ERGOCALCIFEROL 50000UNITS CAPSULE PO SCH (09:23)
[2021-11-09] MEDS: ASCORBIC ACID 500 MG TABLET PO SCH ×2 (09:24→21:48)
[2021-11-09] MEDS: AMLODIPINE 5MG TABLET PO SCH (09:24)
[2021-11-09] MEDS: LOSARTAN POTASSIUM 50 MG TABLET PO SCH ×2 (09:24→21:00)
[2021-11-09] MEDS: CARVEDILOL 6.25 MG TABLET PO SCH ×2 (09:24→21:00)
[2021-11-09] MEDS: DEXAMETHASONE 10 MG/ML VIAL IV SCH (09:25)
[2021-11-09] MEDS: FAMOTIDINE 20MG TABLET PO SCH ×2 (09:25→21:48)
[2021-11-09] MEDS: INSULIN GLARGINE UD 100 UNITS/ML SYR SUBCUT SCH ×2 (10:59→22:12)
[2021-11-09 12:00] VITALS: BP 127/64
[2021-11-09 16:00] VITALS: BP 126/71
[2021-11-09] MEDS: ASPIRIN 81MG TABLET PO SCH (17:46)
[2021-11-09 20:00] VITALS: BP 100/58
[2021-11-09] MEDS: ATORVASTATIN CALCIUM 20MG TABLET PO SCH (21:48)
[2021-11-10] VITALS: BP 107/57
[2021-11-10 04:00] VITALS: BP 128/70
[2021-11-10] MEDS: BLOOD SUGAR DIAGNOSTIC STRIP TEST SCH ×4 (06:15→21:00)
[2021-11-10] MEDS: NITROGLYCERIN OINT 1GM/INCH UDPKT TD SCH ×3 (06:15→22:35)
[2021-11-10 07:23] LABS: PLATELET ESTIMATE NORMAL
[2021-11-10] MEDS: INSULIN LISPRO 100 UNITS/ML SUBCUT SCH ×8 (07:40→22:33)
[2021-11-10 08:00] VITALS: BP 148/47
[2021-11-10 08:13] LABS: BASOPHILS % 0.3 % (0.0-2.0); EOSINOPHILS % 1.2 % (0.0-5.0); HEMATOCRIT. 39.9 % (42.0-52.0); HEMOGLOBIN. 13.1 g/dL (14.0-18.0); LYMPHOCYTES % 24.6 % (20.0-50.0); MEAN CORPUSCULAR HEMOGLOBIN 27.9 pg (28.0-32.0); MEAN CORPUSCULAR VOLUME 85.3 fL (80.0-94.0); MEAN PLATELET VOLUME 10.2 fl (7.4-10.4); MONOCYTES % 9.9 % (2.0-8.0); PLATELET 227 x1000/uL (130-400); RED BLOOD CELL COUNT 4.68 mill/uL (4.7-6.1); RED CELL DISTRIBUTION WIDTH 14.8 % (11.6-14.6)
[2021-11-10 08:16] LABS: CHLORIDE 100 mEq/L (98-107)
[2021-11-10] MEDS: AMLODIPINE 5MG TABLET PO SCH (09:02)
[2021-11-10] MEDS: ASPIRIN 81MG TABLET PO SCH (09:02)
[2021-11-10] MEDS: FAMOTIDINE 20MG TABLET PO SCH ×2 (09:02→22:32)
[2021-11-10] MEDS: DEXAMETHASONE 10 MG/ML VIAL IV SCH (09:03)
[2021-11-10] MEDS: LOSARTAN POTASSIUM 50 MG TABLET PO SCH ×2 (09:03→22:31)
[2021-11-10] MEDS: ENOXAPARIN 30MG/0.3ML SYR SUBCUT SCH ×2 (09:03→22:34)
[2021-11-10] MEDS: CARVEDILOL 6.25 MG TABLET PO SCH ×2 (09:03→22:31)
[2021-11-10] MEDS: ASCORBIC ACID 500 MG TABLET PO SCH ×2 (09:11→22:31)
[2021-11-10] MEDS: INSULIN GLARGINE UD 100 UNITS/ML SYR SUBCUT SCH ×2 (09:56→22:34)
[2021-11-10 12:00] VITALS: BP 129/60
[2021-11-10] MEDS: FUROSEMIDE 40MG TABLET PO SCH (13:37)
[2021-11-10 16:00] VITALS: BP 132/56
[2021-11-10 20:00] VITALS: BP 131/82
[2021-11-10] MEDS: ATORVASTATIN CALCIUM 20MG TABLET PO SCH (22:31)
[2021-11-11] VITALS: BP 108/69
[2021-11-11 04:00] VITALS: BP 150/82
[2021-11-11] MEDS: NITROGLYCERIN OINT 1GM/INCH UDPKT TD SCH ×2 (06:55→13:26)
[2021-11-11] MEDS: BLOOD SUGAR DIAGNOSTIC STRIP TEST SCH ×3 (07:40→16:48)
[2021-11-11 08:00] VITALS: BP 130/90
[2021-11-11] MEDS: ENOXAPARIN 30MG/0.3ML SYR SUBCUT SCH (08:16)
[2021-11-11] MEDS: ASCORBIC ACID 500 MG TABLET PO SCH (08:17)
[2021-11-11] MEDS: LOSARTAN POTASSIUM 50 MG TABLET PO SCH (08:17)
[2021-11-11] MEDS: FUROSEMIDE 40MG TABLET PO SCH (08:17)
[2021-11-11] MEDS: FAMOTIDINE 20MG TABLET PO SCH (08:17)
[2021-11-11] MEDS: CARVEDILOL 6.25 MG TABLET PO SCH (08:17)
[2021-11-11] MEDS: ASPIRIN 81MG TABLET PO SCH (08:18)
[2021-11-11] MEDS: AMLODIPINE 5MG TABLET PO SCH (08:18)
[2021-11-11] MEDS: INSULIN LISPRO 100 UNITS/ML SUBCUT SCH ×6 (08:20→16:59)
[2021-11-11] MEDS: DEXAMETHASONE 10 MG/ML VIAL IV SCH (08:21)
[2021-11-11] MEDS: INSULIN GLARGINE UD 100 UNITS/ML SYR SUBCUT SCH (10:07)
[2021-11-11 12:00] VITALS: BP 121/76
[2021-11-11] MEDS ORDERED: AMLO5TAB88 PO (13:14)
[2021-11-11] MEDS ORDERED: ASCO500T20 PO (13:14)
[2021-11-11] MEDS ORDERED: FURO40TA5 PO (13:24)
[2021-11-11] MEDS ORDERED: COR6 PO (13:24)
[2021-11-11] MEDS ORDERED: LOSA50TA3 PO (13:24)
[2021-11-11 13:28] VITALS: BP 126/72
[2021-11-11] MEDS ORDERED: ISOSORBIDE MONONITRATE 30MG TABLET SR 24HR PO SCH (13:45)
[2021-11-11 15:59] VITALS: BP 126/72
== END 2021-11-11 23:30 | disposition home or self-care (01) | DRG 720 ==
LOC: ER 20:28 → MICUSO 23:14 → EDBEDREQSVC 11-02 16:39 → 7WST 11-03 17:05
PROVIDERS: ADMIT Internal Medicine; ATTEND Internal Medicine
PROC: 5A09457 Assistance with Respiratory Ventilation, 24-96 Consecutive Hours, Continuous Positive Airway Pressure (ICD-10-PCS; principal; 2021-11-01)
DX: A41.89 Other specified sepsis (principal); J96.01 Acute respiratory failure with hypoxia; J12.82 Pneumonia due to coronavirus disease 2019; E44.0 Moderate protein-calorie malnutrition; U07.1 COVID-19; G93.40 Encephalopathy, unspecified; I50.23 Acute on chronic systolic (congestive) heart failure; J44.0 Chronic obstructive pulmonary disease with (acute) lower respiratory infection; D64.9 Anemia, unspecified; I11.0 Hypertensive heart disease with heart failure; E11.9 Type 2 diabetes mellitus without complications; E66.01 Morbid (severe) obesity due to excess calories; E78.00 Pure hypercholesterolemia, unspecified; F32.A Depression, unspecified; F41.9 Anxiety disorder, unspecified; I42.0 Dilated cardiomyopathy; R26.89 Other abnormalities of gait and mobility; F17.210 Nicotine dependence, cigarettes, uncomplicated; N17.9 Acute kidney failure, unspecified; G47.33 Obstructive sleep apnea (adult) (pediatric); R65.20 Severe sepsis without septic shock; Z79.899 Other long term (current) drug therapy; Z68.39 Body mass index [BMI] 39.0-39.9, adult; Z82.49 Family history of ischemic heart disease and other diseases of the circulatory system; Z79.4 Long term (current) use of insulin; Z86.73 Personal history of transient ischemic attack (TIA), and cerebral infarction without residual deficits; D17.79 Benign lipomatous neoplasm of other sites
CPT/HCPCS: 36415; 36600; 70544; 70553; 71045; 80048; 80053; 82375; 82805; 82962; 83036; 83735; 83880; 84439; 84443; 84481; 84484; 85025; 85379; 87426; 87804; 93005; 93880; 93970; 94660; 96365; 96367; 96372; 96375; 96376; 99291; J0456; J0696; J1100; J1650; J1815; J1940; J3490; J7060

== ENCOUNTER 2022-03-17 09:29 | Emergency (ER) | payer MEDICAID, OTHER ==
[~2022-03-17] VITALS: Ht 180.3 cm; Wt 136.0 kg
[~2022-03-17 09:29] MED LIST changes: +AMLO5TAB88 PO; +ASCO500T20 PO; +COR6 PO; -Carvedilol PO; -FURO-152 PO; +FURO40TA5 PO; -HYDR-4135 MT; -LISI10TA26 PO; +LOSA50TA3 PO; -Lisinopril PO; -MED4 MT; -POTASSIUM PO
[2022-03-17 11:18] LABS: HEMOGLOBIN. 12.8 g/dL (14.0-18.0); MEAN CORPUSCULAR HEMOGLOBIN 27.6 pg (28.0-32.0); MEAN CORPUSCULAR VOLUME 84.1 fL (80.0-94.0); MEAN PLATELET VOLUME 10.4 fl (7.4-10.4); PLATELET 233 x1000/uL (130-400); RED BLOOD CELL COUNT 4.64 mill/uL (4.7-6.1); RED CELL DISTRIBUTION WIDTH 14.9 % (11.6-14.6)
[2022-03-17 11:32] LABS: CHLORIDE 106 mEq/L (98-107)
[2022-03-17] MEDS ORDERED: ACETAMINOPHEN WITH CODEINE 300/30MG TABLET PO ONE (11:45)
[2022-03-17] MEDS ORDERED: ALBUTEROL (0.083%) 2.5MG/3ML NEB HHN ONE (11:45)
[2022-03-17] MEDS ORDERED: FUROSEMIDE 40MG/4ML VIAL IV ONE (12:30)
[2022-03-17] MEDS ORDERED: ASPIRIN 81MG TABLET PO ONE (12:30)
[2022-03-17 12:46] LABS: PLATELET ESTIMATE NORMAL
[2022-03-17] MEDS ORDERED: KETOROLAC 30MG/ML VIAL IV NR (16:30)
[2022-03-17 21:00] VITALS: BP 158/97
== END 2022-03-17 21:41 | disposition short-term general hospital (02) ==
LOC: ER 09:54 → EDBEDREQ 12:14 → EDBEDREQTM 12:14 → ER 21:41 → CANBEDREQ 03-18 21:29
DX: I11.0 Hypertensive heart disease with heart failure (principal); I50.9 Heart failure, unspecified; E11.9 Type 2 diabetes mellitus without complications; J44.1 Chronic obstructive pulmonary disease with (acute) exacerbation; Z20.822 Contact with and (suspected) exposure to COVID-19; Z79.82 Long term (current) use of aspirin
CPT/HCPCS: 36415; 71045; 80053; 83880; 84484; 85025; 87426; 93005; 93970; 94640; 96374; 96375; 99291; C9803; J1885; J1940; Z7610